=== PATIENT | male | born 1955 | race Caucasian/White ===

== ENCOUNTER 2017-08-12 14:38 | Emergency (ER) | payer OTHER ==
[2017-08-12 14:43] VITALS: BP 151/100; PULSE 68; TEMP 98.4; BMI 27.2
--- NOTE | 2017-08-12 15:14 | PDOC ---
History of Present Illness - General Chief Complaint: Laceration Stated Complaint: LACERATION LEFT THUMB Time Seen by Provider: 08/12/17 15:03 History Source: Patient Exam Limitations: No Limitations - History of Present Illness Initial Comments: 08/12/17 15:14 62y m hx of leukemia in the remote past cb dvt (currently off any meds) presents with L hand laceration. pt states he was wiping a knife with a towel when the knife cut through th epapter towel andinto his thumb. pt denies any numbness/tingling. bleeding controlled. no other injuries. Past History - Past Medical History Allergies/Adverse Reactions: Allergies Allergy/AdvReac Type Severity Reaction Status Date / Time Penicillins Allergy Verified 08/12/17 14:39 Home Medications: Ambulatory Orders NK [No Known Home Medication] 08/12/17 COPD: No - Immunization History Immunization Up to Date: Yes - Suicide/Smoking/Psychosocial Hx Smoking History: Never smoked Have you smoked in the past 12 months: No Information on smoking cessation initiated: No Hx Alcohol Use: No Drug/Substance Use Hx: No Substance Use Type: None Review of Systems - Review of Systems Able to Perform ROS?: Yes Comments:: 08/12/17 15:16 +thumb laceration no numbness/tinglingw/eakness *Physical Exam - Vital Signs Last Vital Signs Temp Pulse Resp BP Pulse Ox 98.4 F 68 20 151/100 08/12/17 14:38 08/12/17 14:38 08/12/17 14:38 08/12/17 14:38 - Physical Exam Comments: 08/12/17 15:16 Hand: L thumb - 2.5cm curvilinar laceration / flap over the L thumb pad sensation intact distally bleeding controlled, no tendons/neurovascular structures present. motor function intact laceration closed after anesthsia using 3cm of lidocaine, lac was throughly irrigated and exploration without foreign body, with 3 x 4.0 monocryl, simple interupted. good approximation without compications. Procedures - Consent Consent obtained: Verbal - Laceration/Wound Repair Left Volar 1st digit Wound Length: to 2.5 cm Wound Explored: clean, no foreign body present Wound's Depth, Shape: superficial Irrigated w/ Saline: Yes Anesthesia: 1% Lidocaine Amount of Anesthetic (ccs): 3 Wound Debrided: minimal Wound Repaired With: Sutures Suture Size/Type: 4:0 Number of Sutures: 3 Layer Closure: No Deep Layer Suture Size/Type: 4:0 Sterile Dressing Applied: Yes Splint Applied: No *DC/Admit/Observation/Transfer Diagnosis at time of Disposition: Laceration - Discharge Dispostion Disposition: HOME Condition at time of disposition: Improved Admit: No - Referrals Referrals: [facility] [place] [facility] [place] Group] - Patient Instructions Printed Discharge Instructions: DI for Laceration Repair Additional Instructions: Return to the emergency department immediately with ANY new, persistent or worsening symptoms including any redness, bleeding, purulent discharge, swelling or other concerns. Keep the area clean and dry for 48 hours. Afterwards he may clean gently with soap and water. Apply bacitracin twice a day. Keep the area away from the sun for the next 9 months, please use sunscreen and wear a hat if you need to be in the sun to improve appearance of the scar. Return in 12-14 days for suture removal. You MUST call and follow up with your doctor tomorrow for further evaluation of your symptoms. Results were discussed with you. Please make sure your doctor reviews the results of your emergency evaluation. Print Language: INDONESIAN - Post Discharge Activity
== END 2017-08-12 15:37 | disposition home or self-care (01) ==
LOC: FER 14:38
PROC: 0HQGXZZ Repair Left Hand Skin, External Approach (ICD-10-PCS; principal; 2017-08-12)
DX: S61.412A Laceration without foreign body of left hand, initial encounter (principal); W26.0XXA Contact with knife, initial encounter; Y93.89 Activity, other specified; Y92.000 Kitchen of unspecified non-institutional (private) residence as the place of occurrence of the external cause
CPT/HCPCS: 99282-25

== ENCOUNTER 2017-08-20 11:25 | Emergency (ER) | payer OTHER ==
[2017-08-20 11:29] VITALS: BMI 27.2
--- NOTE | 2017-08-20 11:43 | PDOC ---
Suture Removal/Wound Check HPI - History of Present Illness Chief Complaint: Suture/Staple Removal(Here) Stated Complaint: suture removal,placed here 8 days ago per pt. Time Seen by Provider: 08/20/17 11:41 - Onset of Previous Treatment Comment:: 08/20/17 11:41 Sutures removed from the left thumb, distal pulp. Wound well-healed. No sign of infection. No erythema tenderness or drainage. Bacitracin and Band-Aid applied. Follow-up if pain, drainage, redness or swelling. 08/20/17 11:42 Past History - Past Medical History Allergies/Adverse Reactions: Allergies Allergy/AdvReac Type Severity Reaction Status Date / Time Penicillins Allergy Verified 08/20/17 11:26 Home Medications: Ambulatory Orders NK [No Known Home Medication] 08/12/17 COPD: No - Immunization History Immunization Up to Date: Yes - Suicide/Smoking/Psychosocial Hx Smoking History: Current every day smoker Have you smoked in the past 12 months: No Number of Cigarettes Smoked Daily: 6 Information on smoking cessation initiated: Yes 'Breaking Loose' booklet given: 08/20/17 Hx Alcohol Use: Yes (occasional) Drug/Substance Use Hx: No Substance Use Type: None *DC/Admit/Observation/Transfer Diagnosis at time of Disposition: Encounter for removal of sutures - Discharge Dispostion Disposition: HOME Condition at time of disposition: Improved Admit: No - Referrals - Patient Instructions Printed Discharge Instructions: Smoking Cessation, DI for Suture Removal - Post Discharge Activity Forms/Work/School Notes: Back to Work
[2017-08-20 11:50] VITALS: BP 160/89; PULSE 78; TEMP 98.3
== END 2017-08-20 11:50 | disposition home or self-care (01) ==
LOC: FER 11:25
DX: Z48.02 Encounter for removal of sutures (principal)
CPT/HCPCS: 99281-25